=== PATIENT | female | born 1960 | race Caucasian/White ===

== ENCOUNTER → 2018-11-28 | Outpatient (CLI) | payer BC, OTHER | END | disposition home or self-care (01) | LOC: RAH 13:12 | PROVIDERS: ATTEND Otolaryngology | DX: J32.3 Chronic sphenoidal sinusitis (principal) | CPT/HCPCS: 70486 ==

== ENCOUNTER → 2018-12-10 | Outpatient (CLI) | payer BC, OTHER | END | disposition home or self-care (01) | LOC: RAH 12:48 | PROVIDERS: ATTEND Internal Medicine Pulmonary Disease | DX: J84.9 Interstitial pulmonary disease, unspecified (principal) | CPT/HCPCS: 71250 ==

== ENCOUNTER 2018-12-27 14:07 | Emergency (ER) | payer BC, OTHER ==
[2018-12-27] MEDS ORDERED: OCTYL 2-CYANOACRYLATE 1 EACH TP ONE (15:18)
== END 2018-12-27 15:57 | disposition home or self-care (01) ==
LOC: EDH 14:07
DX: S61.211A Laceration without foreign body of left index finger without damage to nail, initial encounter (principal); F41.9 Anxiety disorder, unspecified; Z88.0 Allergy status to penicillin; Z88.2 Allergy status to sulfonamides; Z88.6 Allergy status to analgesic agent; W45.8XXA Other foreign body or object entering through skin, initial encounter; Y93.G3 Activity, cooking and baking; Y92.89 Other specified places as the place of occurrence of the external cause; Y99.8 Other external cause status
CPT/HCPCS: 12041

== ENCOUNTER → 2019-07-23 | Outpatient (CLI) | payer OTHER | END | disposition home or self-care (01) | LOC: RAH 09:14 | PROVIDERS: ATTEND Internal Medicine | DX: I34.0 Nonrheumatic mitral (valve) insufficiency (principal) | CPT/HCPCS: 93306; 93356 ==

== ENCOUNTER → 2020-03-01 | Outpatient (CLI) | payer OTHER | END | disposition home or self-care (01) | LOC: OIH 10:54 | PROVIDERS: ATTEND Internal Medicine | DX: R10.9 Unspecified abdominal pain (principal) | CPT/HCPCS: 74018 ==

== ENCOUNTER → 2020-03-02 | Outpatient (CLI) | payer OTHER | END | disposition home or self-care (01) | LOC: RAH 08:47 | PROVIDERS: ATTEND Internal Medicine | DX: K56.609 Unspecified intestinal obstruction, unspecified as to partial versus complete obstruction (principal); K37 Unspecified appendicitis | CPT/HCPCS: 74176 ==

== ENCOUNTER 2020-03-05 18:54 | Inpatient (IN) | payer OTHER ==
[~2020-03-05] VITALS: Ht 167.6 cm; Wt 77.0 kg
[2020-03-05 19:54] LABS: APPEARANCE,URINE Clear (CLEAR); BILIRUBIN,URINE Negative (NEGATIVE); COLOR,URINE Yellow (YELLOW); GLUCOSE, URINE (UA) Negative (NEGATIVE); KETONES,URINE >=80 mg/dL (NEGATIVE); LEUKOCYTE ESTERASE ,URINE Negative (NEGATIVE); NITRATE,URINE Negative (NEGATIVE); OCCULT BLOOD,URINE Trace (NEGATIVE); PH,URINE 6.5 (5.0-8.0); PROTEIN,URINE POS 1+ mg/dL (NEGATIVE); UROBILINOGEN,URINE 0.2 mg/dL (0.2-1.0)
[2020-03-05] MEDS ORDERED: ONDANSETRON 4MG INJ ONE (20:01)
[2020-03-05 20:03] LABS: BASOPHILS % (AUTO) 0.2 % (0.0-5.0); EOSINOPHILS % (AUTO) 0.6 % (0.0-8.0); HEMATOCRIT 30.4 % (36-48); LYMPHOCYTES % (AUTO) 10.8 % (21.0-51.0); MEAN CORPUSCULAR HEMOGLOBIN 28.1 pg (27.0-33.0); MEAN CORPUSCULAR HGB CONC 33.6 g/dL (32.0-36.0); MEAN CORPUSCULAR VOLUME 83.7 fL (79-99); NEUTROPHILS % (AUTO) 81.1 % (40.0-77.0); PLATELET COUNT (AUTO) 278 K/uL (130-400); RED BLOOD CELL COUNT(AUTO) 3.63 MIL/uL (4.00-5.50); WHITE BLOOD COUNT (AUTO) 13.4 K/uL (4.8-10.8)
[2020-03-05 20:17] LABS: BACTERIA,URINE Rare /HPF (None Seen); TRANSITIONAL EPI CELLS,URINE Few /HPF (None Seen); WBC,URINE 0-1 /HPF (0-1)
[2020-03-05 20:18] LABS: SQUAMOUS EPITHELIAL CELL,UR Few /HPF (0-2)
[2020-03-05 20:25] LABS: ALBUMIN 2.7 g/dL (3.5-5.0); BILIRUBIN,TOTAL 0.4 mg/dL (0.2-1.0); CREATININE 0.7 mg/dL (0.5-1.5); TOTAL PROTEIN, SERUM 6.8 g/dL (6.0-8.3)
[2020-03-05 20:38] LABS: INR 1.18 (0.85-1.15); PROTHROMBIN TIME 12.4 SEC (9.6-11.6)
[2020-03-05] MEDS ORDERED: IOHEXOL-350 75 ML VIAL IV ONE (20:38)
[2020-03-05 20:40] LABS: PARTIAL THROMBOPLASTIN TIME 26.5 SEC (26.3-35.5)
[2020-03-05] MEDS ORDERED: POTASSIUM BICARB/CIT AC 25 MEQ TABLET.EFF ONE (21:07)
[2020-03-05] MEDS ORDERED: ACETAMINOPHEN 500 MG TABLET ONE (21:16)
[2020-03-05] MEDS ORDERED: ZOSYN 3.375GM+NS 50ML 50 ML IV ONE (21:38)
[2020-03-05] MEDS ORDERED: MORPHINE 4 MG SYG IVP PRN (22:00)
[2020-03-05] MEDS ORDERED: 0.9%NACL 1000ML 1,000 ML IV SCH (22:00)
[2020-03-05] MEDS ORDERED: LIDOCAINE HCL-MPF 1% 2ML VIAL IJ PRN (22:15)
[2020-03-05] MEDS ORDERED: ZOSYN 3.375GM+NS 50ML 50 ML IV SCH (22:15)
[2020-03-05] MEDS ORDERED: POTASSIUM CHLORIDE 20MEQ/100ML 100 ML IV PRN ×2 (22:15→23:30)
[2020-03-05] MEDS ORDERED: CEPH500C2 PO (23:11)
[2020-03-05] MEDS ORDERED: LIDOCAINE HCL-MPF 1% 2ML VIAL IV PRN (23:30)
[2020-03-05] MEDS ORDERED: NS-20 MEQ KCL 1000ML 1,000 ML IV SCH (23:30)
[2020-03-06] MEDS ORDERED: METRONIDAZOLE 500MG/100ML BAG 100 ML IVPB SCH
[2020-03-06] MEDS ORDERED: METRONIDAZOLE 500MG/100ML BAG 100 ML ONE ×2 (00:34→04:59)
[2020-03-06] MEDS: MORPHINE 2 MG SYG IVP PRN ×2 (00:44→05:07)
[2020-03-06 01:43] VITALS: BP 157/58
[2020-03-06] MEDS: ZOSYN 3.375GM+NS 50ML 50 ML IV SCH ×3 (02:00→21:01)
[2020-03-06] MEDS: NS-20 MEQ KCL 1000ML 1,000 ML IV SCH ×3 (02:30→21:18)
[2020-03-06] MEDS ORDERED: ZOSYN 3.375GM+NS 50ML 50 ML IV ONE (03:13)
[2020-03-06] MEDS: METRONIDAZOLE 500MG/100ML BAG 100 ML IVPB SCH ×4 (05:02→23:14)
[2020-03-06 06:29] LABS: HEMATOCRIT 30.5 % (36-48); MEAN CORPUSCULAR HEMOGLOBIN 28.2 pg (27.0-33.0); MEAN CORPUSCULAR HGB CONC 32.8 g/dL (32.0-36.0); MEAN CORPUSCULAR VOLUME 85.9 fL (79-99); RED BLOOD CELL COUNT(AUTO) 3.55 MIL/uL (4.00-5.50); RED CELL DISTRIBUTION WIDTH 12.1 % (11.0-15.5); WHITE BLOOD COUNT (AUTO) 12.4 K/uL (4.8-10.8)
[2020-03-06 06:43] LABS: CREATININE 0.6 mg/dL (0.5-1.5); POTASSIUM 3.1 mmol/L (3.5-5.1)
[2020-03-06 08:00] VITALS: BP 131/56
[2020-03-06] MEDS: FAMOTIDINE 20MG VIAL IV SCH ×2 (09:40→21:01)
[2020-03-06] MEDS: KETOROLAC 30MG VIAL (30MG/ML) IV PRN ×3 (09:41→21:18)
[2020-03-06 12:00] VITALS: BP 144/45
[2020-03-06 16:00] VITALS: BP 145/39
[2020-03-06] MEDS: ONDANSETRON 4MG INJ IVP PRN (19:16)
[2020-03-06 19:56] VITALS: BP 143/48
[2020-03-06 23:56] VITALS: BP 143/48
[2020-03-07] MEDS: ZOSYN 3.375GM+NS 50ML 50 ML IV SCH ×3 (02:48→18:24)
[2020-03-07 04:10] VITALS: BP 151/55
[2020-03-07] MEDS: METRONIDAZOLE 500MG/100ML BAG 100 ML IVPB SCH ×4 (05:01→23:16)
[2020-03-07] MEDS: KETOROLAC 30MG VIAL (30MG/ML) IV PRN ×3 (06:22→18:58)
[2020-03-07 06:23] LABS: HEMATOCRIT 27.8 % (36-48); MEAN CORPUSCULAR HGB CONC 32.4 g/dL (32.0-36.0); MEAN CORPUSCULAR VOLUME 86.6 fL (79-99); RED BLOOD CELL COUNT(AUTO) 3.21 MIL/uL (4.00-5.50); RED CELL DISTRIBUTION WIDTH 12.2 % (11.0-15.5); WHITE BLOOD COUNT (AUTO) 8.6 K/uL (4.8-10.8)
[2020-03-07 07:02] LABS: CREATININE 0.7 mg/dL (0.5-1.5); POTASSIUM 3.6 mmol/L (3.5-5.1)
[2020-03-07 07:40] VITALS: BP 148/66
[2020-03-07] MEDS ORDERED: FLUO20CA36 PO (08:47)
[2020-03-07] MEDS ORDERED: MONT-39 PO (08:47)
[2020-03-07] MEDS ORDERED: FLUT16H NASAL (08:47)
[2020-03-07] MEDS ORDERED: LORA10TA7 PO (08:47)
[2020-03-07] MEDS ORDERED: ONDA-104 PO (08:48)
[2020-03-07] MEDS ORDERED: IOHEXOL-350 75 ML VIAL IV ONE (08:56)
[2020-03-07] MEDS: NS-20 MEQ KCL 1000ML 1,000 ML IV SCH ×4 (09:10→22:21)
[2020-03-07] MEDS: FAMOTIDINE 20MG VIAL IV SCH ×2 (09:19→22:21)
[2020-03-07 11:23] VITALS: BP 147/63
[2020-03-07 12:37] LABS: INR 1.22 (0.85-1.15); PROTHROMBIN TIME 12.8 SEC (9.6-11.6)
[2020-03-07 12:38] LABS: PARTIAL THROMBOPLASTIN TIME 26.5 SEC (26.3-35.5)
[2020-03-07] MEDS ORDERED: LEVOFLOXACIN 750 MG/D5W 150 ML 150 ML IV SCH (14:54)
[2020-03-07 16:05] VITALS: BP 151/73
[2020-03-07 20:16] VITALS: BP 159/63
[2020-03-07 23:21] VITALS: BP 152/65
[2020-03-08] VITALS (13 sets, daily range): BP systolic 137–170; BP diastolic 43–102
[2020-03-08] MEDS: ONDANSETRON 4MG INJ IVP PRN (00:32)
[2020-03-08] MEDS: KETOROLAC 30MG VIAL (30MG/ML) IV PRN ×2 (00:33→06:18)
[2020-03-08] MEDS: ZOSYN 3.375GM+NS 50ML 50 ML IV SCH ×3 (01:04→17:43)
[2020-03-08 03:49] LABS: HEMATOCRIT 29.6 % (36-48); MEAN CORPUSCULAR HEMOGLOBIN 28.3 pg (27.0-33.0); MEAN CORPUSCULAR HGB CONC 33.1 g/dL (32.0-36.0); MEAN CORPUSCULAR VOLUME 85.5 fL (79-99); RED BLOOD CELL COUNT(AUTO) 3.46 MIL/uL (4.00-5.50); WHITE BLOOD COUNT (AUTO) 11.5 K/uL (4.8-10.8)
[2020-03-08 04:02] LABS: CREATININE 0.7 mg/dL (0.5-1.5); POTASSIUM 3.9 mmol/L (3.5-5.1)
[2020-03-08] MEDS: METRONIDAZOLE 500MG/100ML BAG 100 ML IVPB SCH ×3 (05:41→17:44)
[2020-03-08] MEDS: NS-20 MEQ KCL 1000ML 1,000 ML IV SCH ×2 (09:20→17:28)
[2020-03-08] MEDS: FAMOTIDINE 20MG VIAL IV SCH ×2 (09:25→20:04)
[2020-03-08] MEDS ORDERED: MAG/ALUM/SIMETH 30 ML UDCUP PO PRN (09:30)
[2020-03-08] MEDS: LEVOFLOXACIN 750 MG/D5W 150 ML 150 ML IV SCH (15:41)
[2020-03-09] MEDS: METRONIDAZOLE 500MG/100ML BAG 100 ML IVPB SCH ×4 (00:09→18:24)
[2020-03-09] MEDS: NS-20 MEQ KCL 1000ML 1,000 ML IV SCH ×2 (01:31→12:06)
[2020-03-09] MEDS: KETOROLAC 30MG VIAL (30MG/ML) IV PRN (01:31)
[2020-03-09] MEDS: ZOSYN 3.375GM+NS 50ML 50 ML IV SCH ×3 (01:31→18:22)
[2020-03-09 04:06] VITALS: BP 146/70
[2020-03-09 06:50] LABS: HEMATOCRIT 30.5 % (36-48); MEAN CORPUSCULAR HEMOGLOBIN 28.1 pg (27.0-33.0); MEAN CORPUSCULAR HGB CONC 33.1 g/dL (32.0-36.0); MEAN CORPUSCULAR VOLUME 84.7 fL (79-99); RED BLOOD CELL COUNT(AUTO) 3.6 MIL/uL (4.00-5.50); RED CELL DISTRIBUTION WIDTH 11.9 % (11.0-15.5); WHITE BLOOD COUNT (AUTO) 11.1 K/uL (4.8-10.8)
[2020-03-09 09:26] VITALS: BP 156/73
[2020-03-09] MEDS: FAMOTIDINE 20MG VIAL IV SCH (11:57)
[2020-03-09 14:31] VITALS: BP 176/74
[2020-03-09] MEDS: LEVOFLOXACIN 750 MG/D5W 150 ML 150 ML IV SCH (15:12)
[2020-03-09 16:37] VITALS: BP 137/50
[2020-03-09 20:32] VITALS: BP 145/73
[2020-03-09] MEDS: FAMOTIDINE 20MG TAB PO SCH (21:10)
[2020-03-10 00:28] VITALS: BP 158/75
[2020-03-10] MEDS: ZOSYN 3.375GM+NS 50ML 50 ML IV SCH ×3 (01:16→18:00)
[2020-03-10 04:28] VITALS: BP 155/71
[2020-03-10] MEDS: METRONIDAZOLE 500MG/100ML BAG 100 ML IVPB SCH ×4 (05:09→18:00)
[2020-03-10 05:20] LABS: BASOPHILS % (AUTO) 0.3 % (0.0-5.0); EOSINOPHILS % (AUTO) 1.7 % (0.0-8.0); HEMATOCRIT 30.6 % (36-48); LYMPHOCYTES % (AUTO) 14.7 % (21.0-51.0); MEAN CORPUSCULAR HEMOGLOBIN 27.8 pg (27.0-33.0); MEAN CORPUSCULAR VOLUME 84.3 fL (79-99); MONOCYTES % (AUTO) 6.1 % (3.0-13.0); NEUTROPHILS % (AUTO) 76.2 % (40.0-77.0); PLATELET COUNT (AUTO) 297 K/uL (130-400); RED BLOOD CELL COUNT(AUTO) 3.63 MIL/uL (4.00-5.50); RED CELL DISTRIBUTION WIDTH 11.9 % (11.0-15.5); WHITE BLOOD COUNT (AUTO) 11.4 K/uL (4.8-10.8)
[2020-03-10 05:48] LABS: ALBUMIN 2.5 g/dL (3.5-5.0); BILIRUBIN,DIRECT 0.1 mg/dL (0.0-0.3); BILIRUBIN,TOTAL 0.4 mg/dL (0.2-1.0); CREATININE 0.7 mg/dL (0.5-1.5); POTASSIUM 3.6 mmol/L (3.5-5.1); TOTAL PROTEIN, SERUM 6.3 g/dL (6.0-8.3)
[2020-03-10] MEDS: FAMOTIDINE 20MG TAB PO SCH ×2 (08:12→16:49)
[2020-03-10] MEDS: NS-20 MEQ KCL 1000ML 1,000 ML IV SCH ×2 (08:12)
[2020-03-10 09:50] VITALS: BP 124/67
[2020-03-10 13:54] VITALS: BP 176/82
[2020-03-10] MEDS: LEVOFLOXACIN 750 MG/D5W 150 ML 150 ML IV SCH (15:44)
[2020-03-10 20:15] VITALS: BP 137/48
[2020-03-10] MEDS: ACETAMINOPHEN 325 MG TAB PO PRN (21:36)
[2020-03-11] VITALS (7 sets, daily range): BP systolic 150–172; BP diastolic 53–71
[2020-03-11] MEDS: METRONIDAZOLE 500MG/100ML BAG 100 ML IVPB SCH ×4 (00:32→18:19)
[2020-03-11] MEDS: ZOSYN 3.375GM+NS 50ML 50 ML IV SCH ×3 (01:34→18:19)
[2020-03-11 04:18] LABS: HEMATOCRIT 29.7 % (36-48); MEAN CORPUSCULAR HEMOGLOBIN 27.8 pg (27.0-33.0); MEAN CORPUSCULAR VOLUME 84.4 fL (79-99); RED BLOOD CELL COUNT(AUTO) 3.52 MIL/uL (4.00-5.50); WHITE BLOOD COUNT (AUTO) 12.4 K/uL (4.8-10.8)
[2020-03-11 04:25] LABS: CREATININE 0.6 mg/dL (0.5-1.5); POTASSIUM 3.1 mmol/L (3.5-5.1)
[2020-03-11] MEDS: FAMOTIDINE 20MG TAB PO SCH ×4 (04:38→16:54)
[2020-03-11] MEDS: KCL 20 MEQ ERTAB PO ONE ×2 (04:38→04:44)
[2020-03-11] MEDS ORDERED: LIDOCAINE HCL-MPF 1% 2ML VIAL IV PRN (04:45)
[2020-03-11] MEDS ORDERED: KCL 20 MEQ ERTAB PO PRN (04:45)
[2020-03-11] MEDS ORDERED: POTASSIUM CHLORIDE 10% ELIXIR 20 MEQ/15 ML UDCUP PO PRN (04:45)
[2020-03-11] MEDS ORDERED: DIATR MEGLU/DIATRIZOATE SODIUM 30 ML BOTTLE ONE (07:30)
[2020-03-11] MEDS: KCL 20 MEQ ERTAB PO SCH ×2 (09:00→13:07)
[2020-03-11] MEDS: NS-20 MEQ KCL 1000ML 1,000 ML IV SCH ×2 (10:02→22:34)
[2020-03-11] MEDS ORDERED: IOHEXOL-350 75 ML VIAL IV ONE (10:59)
[2020-03-11] MEDS: ACETAMINOPHEN 325 MG TAB PO PRN (13:38)
[2020-03-11] MEDS: LEVOFLOXACIN 500 MG TABLET PO SCH (16:54)
[2020-03-11] MEDS: POTASSIUM CHLORIDE 20MEQ/100ML 100 ML IV PRN ×2 (20:21→23:04)
[2020-03-11] MEDS ORDERED: ZOLPIDEM TARTRATE 5 MG TAB ONE (22:56)
[2020-03-12] VITALS: BP 147/56
[2020-03-12] MEDS: METRONIDAZOLE 500MG/100ML BAG 100 ML IVPB SCH ×2 (00:01→05:10)
[2020-03-12] MEDS: ZOSYN 3.375GM+NS 50ML 50 ML IV SCH ×3 (02:20→17:50)
[2020-03-12 04:00] VITALS: BP 133/51
[2020-03-12] MEDS: FAMOTIDINE 20MG TAB PO SCH ×3 (06:30→16:24)
[2020-03-12 06:43] LABS: HEMATOCRIT 29.7 % (36-48); MEAN CORPUSCULAR HEMOGLOBIN 28.4 pg (27.0-33.0); MEAN CORPUSCULAR HGB CONC 33.3 g/dL (32.0-36.0); MEAN CORPUSCULAR VOLUME 85.1 fL (79-99); RED BLOOD CELL COUNT(AUTO) 3.49 MIL/uL (4.00-5.50); RED CELL DISTRIBUTION WIDTH 12.2 % (11.0-15.5); WHITE BLOOD COUNT (AUTO) 11.9 K/uL (4.8-10.8)
[2020-03-12 06:58] LABS: CREATININE 0.7 mg/dL (0.5-1.5); POTASSIUM 3.7 mmol/L (3.5-5.1)
[2020-03-12 08:00] VITALS: BP 128/72
[2020-03-12] MEDS: LEVOFLOXACIN 500 MG TABLET PO SCH (08:18)
[2020-03-12] MEDS ORDERED: METR-172 PO (09:27)
[2020-03-12] MEDS ORDERED: LEVO500T90 PO (09:27)
[2020-03-12] MEDS ORDERED: PIPE3.379 IV (09:30)
[2020-03-12] MEDS ORDERED: POTA-187 PO (09:32)
[2020-03-12] MEDS: NS-20 MEQ KCL 1000ML 1,000 ML IV SCH (09:48)
[2020-03-12] MEDS: METRONIDAZOLE 500 MG TABLET PO SCH ×2 (11:55→19:57)
[2020-03-12 12:00] VITALS: BP 129/65
[2020-03-12 16:00] VITALS: BP 157/77
[2020-03-12] MEDS: ACETAMINOPHEN 325 MG TAB PO PRN (16:31)
[2020-03-12 20:00] VITALS: BP 142/78
[2020-03-13] VITALS (7 sets, daily range): BP systolic 117–149; BP diastolic 50–72
[2020-03-13] MEDS: ONDANSETRON 4MG INJ IVP PRN ×2 (00:26→22:54)
[2020-03-13] MEDS: ACETAMINOPHEN 325 MG TAB PO PRN ×2 (00:35→14:42)
[2020-03-13] MEDS: ZOSYN 3.375GM+NS 50ML 50 ML IV SCH ×3 (01:41→18:45)
[2020-03-13] MEDS: FAMOTIDINE 20MG TAB PO SCH ×3 (06:21→17:24)
[2020-03-13 06:34] LABS: HEMATOCRIT 30.4 % (36-48); MEAN CORPUSCULAR HEMOGLOBIN 28.2 pg (27.0-33.0); MEAN CORPUSCULAR HGB CONC 32.9 g/dL (32.0-36.0); MEAN CORPUSCULAR VOLUME 85.6 fL (79-99); RED BLOOD CELL COUNT(AUTO) 3.55 MIL/uL (4.00-5.50); RED CELL DISTRIBUTION WIDTH 12.4 % (11.0-15.5); WHITE BLOOD COUNT (AUTO) 11.1 K/uL (4.8-10.8)
[2020-03-13 06:53] LABS: CREATININE 0.7 mg/dL (0.5-1.5); POTASSIUM 3.4 mmol/L (3.5-5.1)
[2020-03-13] MEDS: LEVOFLOXACIN 500 MG TABLET PO SCH (09:18)
[2020-03-13] MEDS: METRONIDAZOLE 500 MG TABLET PO SCH ×3 (09:18→17:24)
[2020-03-13] MEDS ORDERED: FAMO-290 PO (11:40)
[2020-03-13] MEDS ORDERED: ONDA4TAB10 PO (11:45)
[2020-03-13] MEDS: NS-20 MEQ KCL 1000ML 1,000 ML IV SCH (14:43)
[2020-03-13] MEDS: POTASSIUM CHLORIDE 20MEQ/100ML 100 ML IV PRN ×2 (20:54→21:01)
[2020-03-14] MEDS: ZOSYN 3.375GM+NS 50ML 50 ML IV SCH (02:11)
[2020-03-14 04:32] VITALS: BP 131/70
[2020-03-14 08:00] VITALS: BP 140/74
[2020-03-14] MEDS ORDERED: FAMOTIDINE 20MG TAB PO SCH (08:00)
[2020-03-14] MEDS ORDERED: METRONIDAZOLE 500 MG TABLET PO SCH (08:00)
[2020-03-14] MEDS: LEVOFLOXACIN 500 MG TABLET PO SCH (08:11)
[2020-03-14 11:00] VITALS: BP 110/60
== END 2020-03-14 15:00 | disposition home or self-care (01) | DRG 372 ==
LOC: EDH 18:54 → EDHIP 21:39 → 3DH 03-06 00:30
PROVIDERS: ADMIT Internal Medicine; ATTEND Internal Medicine
PROC: 02HV33Z Insertion of Infusion Device into Superior Vena Cava, Percutaneous Approach (ICD-10-PCS; principal; 2020-03-10)
DX: K35.33 Acute appendicitis with perforation, localized peritonitis, and gangrene, with abscess (principal); D68.2 Hereditary deficiency of other clotting factors; E87.6 Hypokalemia; Z20.822 Contact with and (suspected) exposure to COVID-19; J30.9 Allergic rhinitis, unspecified; Z79.899 Other long term (current) drug therapy; Z88.5 Allergy status to narcotic agent; Z88.0 Allergy status to penicillin; Z88.2 Allergy status to sulfonamides; Z83.3 Family history of diabetes mellitus; Z82.49 Family history of ischemic heart disease and other diseases of the circulatory system
CPT/HCPCS: 36415; 71045; 74176; 74177; 80048; 80053; 80076; 81001; 83605; 83690; 84132; 84484; 85025; 85027; 85610; 85730; 87040; 87426; 93005; 99291; C1894; G0378; J1885; J1956; J2405; J2543; J3480; J3490; Q9963; Q9967; U0003

== ENCOUNTER → 2023-03-21 | Outpatient (CLI) | payer OTHER ==
[~2023-03-21] MED LIST: FAMO-290 PO; FLUO20CA36 PO; FLUT16H NASAL; LEVO-70 PO; LORA10TA7 PO; METR-172 PO; MONT-39 PO; ONDA4TAB10 PO; PIPE3.379 IV; POTA-187 PO
== END | disposition home or self-care (01) ==
LOC: RAH 13:05
PROVIDERS: ATTEND Internal Medicine
DX: E07.9 Disorder of thyroid, unspecified (principal); J34.89 Other specified disorders of nose and nasal sinuses; M47.815 Spondylosis without myelopathy or radiculopathy, thoracolumbar region
CPT/HCPCS: 70160; 71046; 76536

== ENCOUNTER → 2024-06-30 | Outpatient (CLI) | payer MEDICARE ==
[~2024-06-30] MED LIST changes: +FLUO-418 PO; -FLUO20CA36 PO; +ONDA-243 PO; -ONDA4TAB10 PO; +PIPE3.3773 IV; -PIPE3.379 IV
--- NOTE | 2024-06-30 16:27 | HMCIMG ---
Exam Type: ABD 1VW Clinical Information: ABNORMAL WEIGHT LOSS, DIARRHEA Comparison: None Findings: Abdomen demonstrates no evidence of pathologic calcification or soft tissue mass. There are no radiopacities to suggest calculous disease. There is abundant fecal matter consistent with constipation. There is no evidence of dilatation to suggest obstruction or adynamic ileus. The bony structures are unremarkable. IMPRESSION: Constipation.
== END | disposition home or self-care (01) ==
LOC: RAH 15:07
PROVIDERS: ATTEND Internal Medicine
DX: K59.00 Constipation, unspecified (principal); R19.7 Diarrhea, unspecified; R11.0 Nausea; R63.4 Abnormal weight loss
CPT/HCPCS: 74018

== ENCOUNTER → 2024-07-02 | Outpatient (CLI) | payer MEDICARE ==
--- NOTE | 2024-07-02 12:40 | HMCIMG ---
Exam Type: CT ABDOMEN/PELVIS W/O CONTRAST Clinical Information: ABNORMAL WT LOSS, NAUSEA Comparison: None CT Dose Index (CTDI): 10.20 mGy Dose Length Product (DLP): 530.00 total mGy-cm PROTOCOL: Routine noncontrast helical scanning of the abdomen and pelvis was performed at 5mm collimation. Findings: No evidence of nephro or ureterolithiasis is found. No hydronephrosis or ureteral dilatation is seen. The lung bases are clear. The stomach is unremarkable. It shows no wall thickening. No gross ulceration is seen. It is not overly distended. There are no surrounding inflammatory changes. No wall lesions are identified to suggest cancer. The spleen is unremarkable. It is not enlarged. The pancreas shows normal anatomy. It is not fatty replaced. It shows no lesions. The pancreatic duct is not dilated. There is evidence of cholelithiasis. No evidence of acute or chronic inflammation is seen. The adrenal glands are unremarkable. There is no enlargement. No lesions are noted. The liver is unremarkable. It shows no focal masses. The appendix is not visualized. The small bowel is unremarkable. There is no evidence of dilatation to suggest obstruction. No evidence of adynamic ileus is seen. There is no small bowel wall thickening to suggest enteritis. The colon is unremarkable. The urinary bladder is unremarkable. There is no wall thickening to suggest tumor or inflammation. There are no intraluminal calculi. There are no diverticula. There is no evidence of chronic bladder outlet obstruction. There is no evidence of urinary bladder distention to suggest urinary retention. The other pelvic structures are unremarkable. The bony and vascular structures are unremarkable for the patient's age. IMPRESSION: Cholelithiasis. Status post appendectomy. This study was performed using dose reduction techniques to include automated exposure control and/or adjustment of the mA and/or kV according to patient size.
== END | disposition home or self-care (01) ==
LOC: RAH 11:26
PROVIDERS: ATTEND Internal Medicine
DX: K80.20 Calculus of gallbladder without cholecystitis without obstruction (principal); R11.0 Nausea; R63.4 Abnormal weight loss; R19.7 Diarrhea, unspecified; Z90.49 Acquired absence of other specified parts of digestive tract
CPT/HCPCS: 74176